=== PATIENT | female | born 1950 | race Caucasian/White ===

== ENCOUNTER 2017-05-28 21:02 | Emergency (ER) | payer SELFPAY ==
--- NOTE | 2017-05-28 21:06 | NUR ---
PATIENT WAS TRANSPORTED BY [id number]. PER REPORT [facility] PATIENT WAS DRIVING ON THE FREEWAY AND HAD A PANIC ATTACK. UPON ARRIVAL PATIENT IS A/OX4. NO DISTRESS NOTED. PATIENT REFUSED TO BE TRIAGED OR SEEN BY MD. PATIENT GOT OUT OF RESCUE'S GURNY AND WALKED INTO WAITING ROOM TO WAIT FOR P
--- NOTE | 2017-05-28 21:10 | NUR ---
PATIENT WAS NOT SEEN BY [facility] OR TRIAGED
== END 2017-05-28 21:14 | disposition left against medical advice (07) ==
LOC: ER 21:03
DX: Z53.21 Procedure and treatment not carried out due to patient leaving prior to being seen by health care provider (principal)